=== PATIENT | male | born 2000 | race African-American/Black ===

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

== ENCOUNTER 2024-04-18 19:03 | Emergency (ER) | payer SELFPAY ==
[2024-04-18 20:02] VITALS: BP 131/70; PULSE 74; RESP 16; TEMP 97.7
== END 2024-04-18 20:43 | disposition home or self-care (01) ==
LOC: JERFT 19:03
DX: K08.89 Other specified disorders of teeth and supporting structures (principal)
CPT/HCPCS: 99283-25